=== PATIENT | female | born 1995 | race Caucasian/White ===

== ENCOUNTER 2024-02-21 14:34 | Inpatient (IN) | payer MEDICARE, SELFPAY ==
[2024-02-21 14:35] VITALS: BP 93/61; BP 96/59; PULSE 76; PULSE 81; RESP 12; RESP 14; TEMP 36.8; O2SAT 100; O2SAT 98; BMI 26.8
[2024-02-21 16:35] VITALS: BP 101/64; PULSE 98; RESP 16; O2SAT 99
--- NOTE | 2024-02-21 16:56 | EX.ED.SAOD ---
HPI History of Present Illness Chief Complaint: Substance Abuse Detail of Chief Complaint: Requesting detox from Xanax and cocaine Informant: patient Narrative Narrative: Patient presents emergency department complaint of requesting detox from heroin and cocaine. Patient states that she last used Xanax yesterday. She has been using about 10 to 12 pills of Xanax per day and she is not sure of the dosage. She has been on a terry for about 8 days. Patient denies alcohol use. She patient states that she used to abuse heroin but has been clean for about 4 months. She has not injected IV drugs in 4 months. PFSH PFS Home Medications ?Medication ?Instructions ?Recorded ?Last Taken ?Type albuterol sulfate 90 mcg/actuation 2 inh inhalation BID 02/21/24 02/20/24 History aerosol inhaler (ProAir HFA) alprazolam 0.25 mg tablet (Xanax) 0.25 mg PO DAILY 02/21/24 Unknown History Allergy/AdvReac Type Severity Reaction Status Date / Time acetaminophen (From Tylenol) Allergy Hives Verified 02/21/24 14:36 diphenhydramine (From Allergy HIVES Verified 02/21/24 14:36 Benadryl) ROS ROS ED ROS Narrative Requesting detox from benzodiazepines Review of Systems ROS Unobtainable: other Constitutional Constitutional ED: Reports lethargy; Denies chills, fever(s), sweats or weight loss Eyes Eyes: Denies blurry vision, change in vision or diplopia ENT ENT ED: Denies rhinorrhea or sore throat Cardiovascular Cardiovascular: Denies chest pain, orthopnea or racing heartbeat Respiratory/Chest Respiratory/Chest: Denies cough, dyspnea, dyspnea on exertion, orthopnea or sputum Gastrointestinal Gastrointestinal: Denies abdominal pain, diarrhea, nausea or vomiting Genitourinary Genitourinary ED: Denies dysuria, hematuria or urinary frequency Musculoskeletal Musculoskeletal: Denies arthralgias, back pain, myalgias or neck pain Integumentary Denies abscess, Abrasions or rash Neurologic Neurologic: Denies headache(s) or weakness Psychiatric Psychiatric: Denies anxiety, depression or suicidal thoughts Endocrine Endocrinology: Denies polydipsia, polyphagia or polyuria Hematologic/Lymphatic Hematologic/Lymphatic: Denies easy bleeding, easy bruising or lymphadenopathy Allergic/Immunologic Allergic/Immunologic ED: Denies mouth swelling, tongue swelling or urticaria EXAM Physical Exam Const Vital Signs: 02/21/24 14:35 02/21/24 14:35 Temperature 98.2 F Temperature Source Temporal Pulse Rate 76 81 Respiratory Rate 14 12 Blood Pressure 93/61 96/59 L Blood Pressure Mean 71 71 Pulse Ox 100 98 Oxygen Delivery Method Room Air Room Air Positive well nourished and well developed General Appearance ED: well developed and NAD HEENT Reports TM's clear and moist mucous membranes normocephalic and atraumatic; Negative for trauma or tenderness Tympanic Membrane ED: Yes TM's clear Eyes PERRL and EOMs intact bilaterally General Eye ED: Negative for pale conjunctiva or scleral icterus Neck no lymphadenopathy, supple and no JVD General: Negative for tenderness Chest Wall inspection of chest normal and palpation of chest normal Chest: Negative for tenderness Resp normal respiratory effort and clear to auscultation bilaterally Effort and Inspection: Negative for respiratory distress or pain with movement Auscultation: Negative for rhonchi, wheezes or diminished lung sounds Cardio regular rate, regular rhythm, S1 normal heart sound, S2 normal heart sound and no murmurs Peripheral Pulses: pulses 2+ throughout GI normal to inspection, nondistended, normoactive bowel sounds, soft to palpation, non-tender, non-distended and no masses Back/Spine no CVA tenderness and no thoracic nor lumbar tenderness Extremity normal to inspection General Extremety ED: Negative for edema General Extremity: Negative for edema Neuro oriented x3, CN's II-XII intact bilaterally, no sensory deficits noted and gait normal Sensorium / Orientation: awake, alert, oriented to person, oriented to place and oriented to time Motor Exam: strength 5/5 throughout and strength abnormal Psych mental status grossly normal Skin no rashes or lesions noted and no wounds MDM MDM MDM Narrative Medical decision making narrative: Patient presents requesting detox from Xanax. I did give her a dose of phenobarbital. Case discussed with hospitalist to evaluate patient for admission I did order a as well as urine tox and alcohol level. Also ordered basic labs which are pending. Discharge Plan Triage Chief Complaint: Substance Abuse ED Provider: Junito Hrarison Dx/Rx/DC Orders Clinical Impression: Benzodiazepine abuse, Admitted to substance misuse detoxification center Prescriptions: No Action alprazolam [Xanax] 0.25 mg tablet 0.25 mg PO DAILY Patient Comments: PT UNSURE OF STRENGTH. SAYS SHE TAKES BLUE ONES AND PEACH ONES. albuterol sulfate [ProAir HFA] 90 mcg/actuation HFA aerosol inhaler 2 inh inhalation BID Primary Care Provider: Care Physician,No Primary Referrals: Care Physician,No Primary [Primary Care Provider] - Print Language: Swazi Disposition Disposition: Acute Care Hospital [facility]
[2024-02-21 17:58] VITALS: BP 102/74; PULSE 82; RESP 16; TEMP 36.9; O2SAT 100
[2024-02-21] MEDS: 0.9% Normal Saline (1000mL) 1,000 ML 150 ML IV (18:30)
[2024-02-21] MEDS: Phenobarbital 32.4 MG Tablet PO (18:33)
[2024-02-21 18:36] LABS: Absolute Neutrophil Count 4.9 X10^3/uL (2.0-7.7); Basophil# 0.04 X10^3/uL; Basophil% 0.5 % (0-1); Eosinophil# 0.21 X10^3/uL; Eosinophils% 2.4 % (0-5); Hematocrit 39.8 % (37-47); Hemoglobin 13.2 g/dL (12.0-15.0); Lymphocyte % 33.4 % (19-41); Mean Corp Hgb Conc 33.2 g/dL (32-36); Mean Corpuscular Hgb 30.2 pg (27.0-32.0); Mean Corpuscular Volume 91.1 fL (81-99); Mean Platelet Vol. 10.1 fl (6.2-12.0); Monocyte# 0.59 X10^3/uL; Monocyte% 6.8 % (0-10); NRBC Flagged by Analyzer 0 % (0-5); Neutrophil # 4.91 X10^3/uL (2.7-7.7); Neutrophil % 56.6 % (47-70); Platelet Count 277 K/mm3 (150-450); RBC Distribution Width CV 13.1 % (11.6-14.6); RBC Distribution Width SD 43.8 fl (35.1-43.9); Red Blood Count 4.37 M/mm3 (4.2-5.4); White Blood Count 8.7 K/mm3 (4.4-11.0)
[2024-02-21 18:57] LABS: AST(SGOT) 32 U/L (15-37); Alanine Aminotransfer ALT/SGPT 37 U/L (13-56); Albumin, Serum 3.4 g/dL (3.2-5.0); Alkaline Phosphatase 89 U/L (45-117); Anion Gap 4 (5-15); BUN 19 mg/dL (7-18); BUN/Creat Ratio 33.1 RATIO (10-20); Calcium,Total 8.1 mg/dL (8.5-10.1); Chloride 111 mmol/L (98-107); Creatinine, Serum 0.57 mg/dL (0.55-1.02); EST Glomerular Filtration Rate 132 mL/min (>60); Est Glom Filt Rate - Afr Amer 160 mL/min (>60); Estimated Creatinine Clearance 145.94 ml/min; Globulin 3.5 g/dL (2.2-4.2); Glucose 87 mg/dL (74-106); Potassium 4.2 mmol/L (3.5-5.1); Protein, Total 6.9 g/dL (6.4-8.2); Sodium Level 140 mmol/L (136-145)
[2024-02-21 18:58] LABS: Internal QC Validated? YES +Cl - CLEAR BKGD; Pregnancy, Serum, hCG Quali. NEGATIVE Negative
[2024-02-21 19:17] LABS: Alcohol, Blood (Medical)-Serum < 3.0 mg/dL
--- NOTE | 2024-02-21 19:21 | HP.PCM.HOS_ITS ---
HPI - General General Date of Admission: 02/21/24 Date of Service: 02/21/24 Chief Complaint: Desiring services for benzodiazepine detox HPI Narrative JAYNA COATES, is a 28 F who presents to the emergency room at [facility] desiring services for detox from Xanax which she takes as an outpatient. Patient gets Xanax on the street and does not know the exact dosage, the last time she took any Xanax for his early this morning, at the time my examination, she is not complaining of any anxiety at this time. Patient told this examiner that she takes 10-12 Xanax's a day, she also sometimes uses cocaine. Patient used to use heroin but has not used any in 4 months. Patient denies any alcohol usage. Patient states she went through detox proximately 2 years ago when she was on heroin. Labs showed a normal CBC, chemistry profile was unremarkable except for a slight elevation in BUN and chloride. At the time of my dictation, toxicology was pending, patient's ethyl alcohol level was below 3. Patient will be admitted to [place] [address] for benzodiazepine detox, orders were entered using the benzodiazepine detox order set and she will be seen by addiction social service technician. [facility] Medical History (Updated 02/21/24 @ 17:59 by Lyn Griffith) Asthma Heroin use Medical History no medical history Home Medications ?Medication ?Instructions ?Recorded ?Last Taken ?Type albuterol sulfate 90 mcg/actuation 2 inh inhalation BID 02/21/24 02/20/24 History aerosol inhaler (ProAir HFA) alprazolam 0.25 mg tablet (Xanax) 0.25 mg PO DAILY 02/21/24 Unknown History Allergy/AdvReac Type Severity Reaction Status Date / Time acetaminophen (From Tylenol) Allergy Hives Verified 02/21/24 14:36 diphenhydramine (From Allergy HIVES Verified 02/21/24 14:36 Benadryl) Surgical History (Updated 02/21/24 @ 17:59 by Lyn Griffith) Hx of tonsillectomy Social History Smoking Status: Heavy Smoker (>10/day) ROS Constitutional Constitutional: Denies anorexia, change in weight, chills, fatigue, fever(s), malaise, night sweats or weakness Eyes Eyes: Denies blurry vision, change in vision, discharge from eye(s) or eye pain Cardiovascular Cardiovascular: Denies chest pain, claudication, dyspnea on exertion, edema or palpitations Respiratory/Chest Respiratory/Chest: Denies cough, hemoptysis, shortness of breath at rest or shortness of breath with exertion Gastrointestinal Gastrointestinal: Denies abdominal pain, constipation, diarrhea, hematemesis, hematochezia, melena, nausea or vomiting Genitourinary Genitourinary: Denies dysuria, hematuria, urinary frequency, urinary hesitancy, urinary incontinence or urinary urgency Musculoskeletal Musculoskeletal: Denies back pain, joint pain, joint stiffness, joint swelling, myalgias or neck pain Neurologic Neurologic: Denies abnormal gait, abnormal speech, confusion, dizziness, focal weakness, headache(s), loss of vision, numbness, other visual disturbances, paresthesias, syncope or tingling Psychiatric Psychiatric: Denies anxiety, cognitive impairment, depression, irritability, mood swings or suicidal ideation Endocrine Endocrinology: Denies change in body appearance, cold intolerance, excessive sweating, heat intolerance, polydipsia or polyuria Hematologic/Lymphatic Hematologic/Lymphatic: Denies none, anemia, easy bleeding, easy bruising or lymphadenopathy Allergic/Immunologic Allergic/Immunologic: Denies rhinitis, urticaria, eczemia or asthma Vital Signs Vital Signs Vital Signs: 02/21/24 14:35 02/21/24 14:35 02/21/24 16:35 Temperature 98.2 F Temperature Source Temporal Pulse Rate 76 81 98 Respiratory Rate 14 12 16 Blood Pressure 93/61 96/59 L 101/64 Blood Pressure Mean 71 71 76 Pulse Ox 100 98 99 Oxygen Delivery Method Room Air Room Air Room Air 02/21/24 17:58 Temperature 98.5 F Temperature Source Pulse Rate 82 Respiratory Rate 16 Blood Pressure 102/74 Blood Pressure Mean 83 Pulse Ox 100 Oxygen Delivery Method Weight Weight: 73.2 kg Body Mass Index (BMI) 26.8 Physical Exam Const alert, oriented x3, no apparent distress, average body habitus and healthy appearing General Appearance: cooperative, well kempt and well developed Orientation / Consciousness: awake, oriented to person, oriented to place and oriented to time HEENT normocephalic, head/scalp atraumatic, hearing grossly normal bilaterally and moist oral mucous membranes Eyes PERRL, EOMs intact bilaterally and conjunctivae normal Neck supple, no JVD, thyroid normal and no carotid bruits General: trachea midline Resp normal respiratory effort, no retractions, no use of accessory muscles and clear to auscultation bilaterally Auscultation: Negative for rales, rhonchi or wheezes Cardio regular rate, regular rhythm, no murmurs, no rub and no gallops GI normal to inspection, nondistended, normoactive bowel sounds, soft to palpation, non-tender and non-distended Extremity no clubbing, cyanosis or edema Skin no rashes or lesions noted General Skin Exam: no breakdown Neuro oriented x3, CN's II-XII intact bilaterally, moves all extremities, no focal motor deficits and no sensory deficits noted Sensorium / Orientation: awake, alert, oriented to person, oriented to place and oriented to time Speech: speech normal Psych affect normal Results Lab / Micro Data 02/21/24 18:25 02/21/24 18:25 Labs: Laboratory Results - last 24 hr 02/21/24 17:35: Ur Drug Screen Comment 02/21/24 18:25: WBC 8.7, RBC 4.37, Hgb 13.2, Hct 39.8, MCV 91.1, MCH 30.2, MCHC 33.2, RDW Std Deviation 43.8, RDW Coeff of Leigh 13.1, Plt Count 277, MPV 10.1, Immature Gran % (Auto) 0.300, Neut % (Auto) 56.6, Lymph % (Auto) 33.4, [place] % (Auto) 6.8, Eos % (Auto) 2.4, Baso % (Auto) 0.5, Absolute Neuts (auto) 4.9, Absolute Lymphs (auto) 2.90, Nucleated RBC % 0, Sodium 140, Potassium 4.2, C hloride 111 H, Carbon Dioxide 25.0, Anion Gap 4 L, BUN 19 H, Creatinine 0.57, Estim Creat Clear Calc 145.94, Est GFR (MDRD) Af Amer 160, Est GFR (MDRD) Non-Af 132, BUN/Creatinine Ratio 33.1 H, Glucose 87, Calcium 8.1 L, Total Bilirubin 0.20, AST 32, ALT 37, Alkaline Phosphatase 89, Total Protein 6.9, Albumin 3.4, Globulin 3.5, Albumin/Globulin Ratio 1.0, Serum , Qual NEGATIVE, Ethyl Alcohol < 3.0 Assessment & Plan Assessment/Plan (1) Benzodiazepine abuse: PLAN: Plan 1. Impending benzodiazepine withdrawal-patient will be admitted to [facility] and be seen by addiction social service technician, she will be placed on phenobarbital taper. #2 asthma by history-patient was placed on aerosol treatments as needed every 2 hours #3 cocaine abuse-complicates care, management, recovery, and prognosis Total clinical time spent by myself addressing patient's medical issues, reviewing all of her data, and collaborating with patient's care team 40 minutes Charges/Coding Visit Charges Inpatient E&M: 87851 Init Hosp L1
[2024-02-21 19:32] VITALS: BMI 27.4
[2024-02-21 19:42] VITALS: BP 95/57; PULSE 72; RESP 17; TEMP 36.6; O2SAT 99
[2024-02-21] MEDS: Phenobarbital 32.4 MG Tablet 64.8 MG PO (20:37)
[2024-02-21] MEDS: hydrOXYzine PAM 25 MG Capsule 50 MG PO (20:42)
[2024-02-21] MEDS: Dicyclomine 10 MG Capsule 20 MG PO (20:42)
[2024-02-21 23:29] LABS: Amphetamine Urine VISTA NEGATIVE (<1000 ng/mL); Barbiturate Urine VISTA POSITIVE (< 200 ng/mL); Benzodiazepine Urine VISTA POSITIVE (< 200 ng/mL); Cocaine Urine VISTA POSITIVE (< 300 ng/mL); Ecstacy Urine VISTA NEGATIVE (< 500 ng/mL); Methadone Urine VISTA NEGATIVE (< 300 ng/mL); PCP Urine VISTA NEGATIVE (< 25 ng/mL); THC Urine VISTA POSITIVE (< 50 ng/mL); Vista UDS pH Range 6
[2024-02-22] MEDS: Phenobarbital 32.4 MG Tablet 64.8 MG PO ×6 (00:55→20:57)
[2024-02-22] MEDS: traZODone 100 MG Tablet PO ×2 (00:55→23:01)
[2024-02-22] MEDS: Ondansetron 8 MG Tablet PO (00:55)
[2024-02-22] MEDS: Ibuprofen 600 MG Tablet PO ×2 (00:55→21:04)
[2024-02-22 05:10] VITALS: BP 92/54; PULSE 66; RESP 18; TEMP 36.5; O2SAT 98
[2024-02-22] MEDS: Gabapentin 300 MG Capsule PO (05:10)
[2024-02-22 07:55] VITALS: BP 90/52; PULSE 67; RESP 16; TEMP 36.6; O2SAT 95
[2024-02-22] MEDS: hydrOXYzine PAM 25 MG Capsule 50 MG PO (07:56)
[2024-02-22] MEDS: Folic Acid 1 MG Tablet PO (07:56)
[2024-02-22] MEDS: Thiamine Hydrochloride 100 MG Tablet PO (07:56)
--- NOTE | 2024-02-22 08:09 | PN.HOSP_ITS ---
Reason for Visit Reason for Visit: Benzodiazepine detox Subjective Subjective Patient is a 28-year-old white female who presented to the emergency department was given aspirin on 02/21/2024 desiring benzodiazepine detox. She takes Xanax as an outpatient and buys off the street. She does not know the exact dosage but the last time she took any Xanax was on the morning of admission. She reported she takes 10 to 12 tablets a day of unknown dose and she also sometimes uses cocaine. She had previously used heroin but has not used any in the last 4 months. She went through a detox program about 2 years ago for heroin and benzodiazepines. Vital signs on presentation showed temperature of 98.2, heart rate 76, respirate 14, blood pressure is 93/61 and sats 100% room air. CBC was unremarkable. Chemistry panel showed some mild dehydration. Toxicology screen was positive for barbiturates, benzodiazepines, cocaine, and cannabinoids. EtOH level was negative. She was admitted to the medical floor and placed on a phenobarbital taper and addiction medicine was consulted. Patient sleeping soundly. No issues known at this time. Addiction medicine attempted to see the patient today but she could not stay awake long enough to participate and will reevaluate tomorrow. Objective Data Objective Data Vital Signs: Vital Signs Temp Pulse Resp BP Pulse Ox O2 Del Method 97.7 F L 66 18 92/54 L 98 Room Air 02/22/24 05:10 02/22/24 05:10 02/22/24 05:10 02/22/24 05:10 02/22/24 05:10 02/22/24 05:10 Oxygen Delivery Method Room Air Weight: 74.9 kg Body Mass Index (BMI) 27.4 Intake & Output: Intake and Output for Last 24 Hours 02/20/24 02/21/24 02/22/24 23:59 23:59 23:59 Intake Total 335 / 335 Balance 335 / 335 Lab / Micro Data 02/21/24 18:25 02/21/24 18:25 Labs: Laboratory Results - last 24 hr 02/21/24 17:35: Urine Opiates Screen Cancelled, Urine Methadone Screen Cancelled, Ur Barbiturates Screen Cancelled, Ur Phencyclidine Scrn Cancelled, Ur Amphetamines Screen Cancelled, MDMA (Ecstasy) Screen Cancelled, U Benzodiazepines Scrn Cancelled, Urine Cocaine Screen Cancelled, U Cannabinoids Screen Cancelled, Ur Drug Screen Comment Cancelled 02/21/24 18:25: WBC 8.7, RBC 4.37, Hgb 13.2, Hct 39.8, MCV 91.1, MCH 30.2, MCHC 33.2, RDW Std Deviation 43.8, RDW Coeff of Leigh 13.1, Plt Count 277, MPV 10.1, Immature Gran % (Auto) 0.300, Neut % (Auto) 56.6, Lymph % (Auto) 33.4, Christian % (Auto) 6.8, Eos % (Auto) 2.4, Baso % (Auto) 0.5, Absolute Neuts (auto) 4.9, Absolute Lymphs (auto) 2.90, Nucleated RBC % 0, Sodium 140, Potassium 4.2, C hloride 111 H, Carbon Dioxide 25.0, Anion Gap 4 L, BUN 19 H, Creatinine 0.57, Estim Creat Clear Calc 145.94, Est GFR (MDRD) Af Amer 160, Est GFR (MDRD) Non-Af 132, BUN/Creatinine Ratio 33.1 H, Glucose 87, Calcium 8.1 L, Total Bilirubin 0.20, AST 32, ALT 37, Alkaline Phosphatase 89, Total Protein 6.9, Albumin 3.4, Globulin 3.5, Albumin/Globulin Ratio 1.0, Serum , Qual NEGATIVE, Ethyl Alcohol < 3.0 02/21/24 23:00: Urine Opiates Screen NEGATIVE, Urine Methadone Screen NEGATIVE, Ur Barbiturates Screen POSITIVE H, Ur Phencyclidine Scrn NEGATIVE, Ur Amphetamines Screen NEGATIVE, MDMA (Ecstasy) Screen NEGATIVE, U Benzodiazepines Scrn POSITIVE H, Urine Cocaine Screen POSITIVE H, U Cannabinoids Screen POSITIVE H, Ur Drug Screen Comment Physical Exam Const no apparent distress, average body habitus and well nourished; Negative for healthy appearing Constitutional Narrative: Young, white female, lying in bed sleeping soundly, appears comfortable, does not appear toxic Resp normal respiratory effort, no retractions, no use of accessory muscles and clear to auscultation bilaterally Auscultation: Negative for rales, rhonchi or wheezes Cardio regular rate, regular rhythm, S1 normal heart sound, S2 normal heart sound, no murmurs, no rub, no gallops and no clicks GI normal to inspection, nondistended, normoactive bowel sounds and soft to palpation Extremity no clubbing, cyanosis or edema Extremity Narrative: Pedal pulses are 2+ Neuro Neuro Narrative: Patient sleeping soundly Psych Psych Narrative: Unable to assess as patient was sleeping Assessment & Plan Assessment/Plan (1) Admitted to substance misuse detoxification center: (2) Benzodiazepine abuse: PLAN: Plan Acute benzodiazepine withdrawal -Continue phenobarbital taper -Continue supportive medication for withdrawal symptoms -180 consultation for discharge planning assistance Asthma -As needed aerosols available -No signs of decompensation Polysubstance abuse -Toxicology screen was positive for benzodiazepines, cocaine, and cannabinoids -Recommend cessation of all -Treatment as above Tobacco abuse -Patient admits to being a heavy smoker -Nicotine patch available -Recommend cessation DVT prophylaxis -Low risk -Recommend early and frequent ambulation CODE STATUS Full code Charges/Coding Visit Charges Inpatient E&M: 44150 Subs Hosp L2
[2024-02-22 11:30] VITALS: BP 98/49; PULSE 66; RESP 16; TEMP 36.8; O2SAT 96
--- NOTE | 2024-02-22 12:08 | ADDICTION ---
TW attempted to meet pt for RAMP assessments. Pt could not stay awake long enough to participate. TW will complete assessments and d/c plan on 02/22.
--- NOTE | 2024-02-22 14:45 | CHAPLAIN ---
Type of Pastoral Visit ___ Initial Visit ___ Follow-up Visit ___ On-call Visit ___ General Patient Visit ___ Spiritual Assessment ___ Family Conference ___ Bereavement ___ Rapid Response ___ Code Blue ___ Other (describe below) Pastoral Care Referral From ___ Patient ___ Family ___ Nurse ___ Physician ___ Call Centre Supervisor ___ Produce Specialist ___ Other (describe below) Sacrament/Intervention ___ Active listening ___ Anointing ___ Denominational ___ Bereavement ___ Communion ___ Yanet exploration ___ ___ Life review ___ Prayer ___ Reconciliation ___ Sacrament of Sick ___ Supportive presence ___ Wedding ___ Other (describe below) Pastoral Comments patient was sleeping and did not awaken to her name
[2024-02-22 16:15] VITALS: BP 95/69; PULSE 72; RESP 18; TEMP 36.4; O2SAT 98
[2024-02-22 20:55] VITALS: BP 108/58; PULSE 75; RESP 16; TEMP 36.4; O2SAT 99
[2024-02-22] MEDS: 0.9% Saline Lock 10 ML Syringe IV (20:58)
[2024-02-22] MEDS: Nicotine Polacrilex 2 MG GUM PO (21:01)
[2024-02-22] MEDS: Dicyclomine 10 MG Capsule 20 MG PO (21:04)
[2024-02-23 00:06] VITALS: BP 102/64; PULSE 67; RESP 16; TEMP 36.6; O2SAT 98
[2024-02-23] MEDS: Phenobarbital 32.4 MG Tablet 64.8 MG PO ×2 (00:06→04:17)
[2024-02-23] MEDS: Nicotine Polacrilex 2 MG GUM PO (00:09)
[2024-02-23] MEDS: Lidocaine 5% Patch 2 PATCH TOPICAL ×2 (00:14→21:26)
[2024-02-23 04:19] VITALS: BP 94/62; PULSE 62; RESP 17; TEMP 36.4; O2SAT 98
[2024-02-23 08:15] VITALS: BP 97/60; PULSE 72; RESP 16; TEMP 36.6; O2SAT 97
[2024-02-23] MEDS: Dicyclomine 10 MG Capsule 20 MG PO (08:17)
[2024-02-23] MEDS: hydrOXYzine PAM 25 MG Capsule 50 MG PO (08:17)
[2024-02-23 13:20] VITALS: BP 94/53; PULSE 58; RESP 16; TEMP 36.6; O2SAT 93
--- NOTE | 2024-02-23 14:05 | ADDICTION ---
This principal technical writer met with PT to conduct ASAM, MSE, AUDIT, DUDIT assessments and to plan for d/c. PT A+Ox4 and participated actively. All assessments completed. PT plans to f/u with inpatient treatment services on . A referral was made to [facility] in [place]. Once approved, [facility] will provide transport to treatment.
--- NOTE | 2024-02-23 14:52 | PCM.PN.HOSP ---
Reason for Visit Reason for Visit: Diagnoses Sedative, hypnotic or anxiolytic abuse, uncomplicated (02/21/24) Other specified health status (02/21/24) Subjective Subjective Patient more alert today. Objective Data Objective Data Vital Signs: Vital Signs Temp Pulse Resp BP Pulse Ox O2 Del Method 36.6 C 58 L 16 94/53 L 93 Room Air 02/23/24 13:20 02/23/24 13:20 02/23/24 13:20 02/23/24 13:20 02/23/24 13:20 02/23/24 13:20 Oxygen Delivery Method Room Air Weight: 74.9 kg Body Mass Index (BMI) 27.4 Intake & Output: Intake and Output for Last 24 Hours 02/21/24 02/22/24 02/23/24 23:59 23:59 23:59 Intake Total 335 / 335 240 / 240 Balance 335 / 335 240 / 240 Lab / Micro Data 02/21/24 18:25 02/21/24 18:25 Physical Exam Const Constitutional Narrative: Groggy took a better time to wake her but no respiratory distress or no conversational dyspnea. Resp normal respiratory effort and no retractions Assessment & Plan Assessment/Plan (1) Benzodiazepine abuse: PLAN: Plan Benzodiazepine withdrawal patient has been extremely somnolent and so I have discontinued all of the changing medications. Patient has been seen by addiction medicine and the plan is for her to go to residential program on the . Initial plan was for the patient be discharged today but with potential for relapse, will keep the patient here in the hospital so that she may go to the residential program on the . I still do have concerns about compliance and I am concerned that patient was going to different providers and going to different pharmacies to get various opiate withdrawal medications. I do have some concern if there is even the possibility of diversion. Charges/Coding Visit Charges Inpatient E&M: 60442 Subs Hosp L1
[2024-02-23 16:54] VITALS: BP 89/52; PULSE 65; RESP 16; TEMP 36.7; O2SAT 95
[2024-02-23 21:47] VITALS: BP 96/53; PULSE 66; RESP 16; TEMP 36.7; O2SAT 99
[2024-02-24 01:28] VITALS: BP 104/59; PULSE 60; RESP 16; TEMP 36.6; O2SAT 94
[2024-02-24] MEDS: Dicyclomine 10 MG Capsule 20 MG PO (01:35)
[2024-02-24] MEDS: Ibuprofen 600 MG Tablet PO (01:35)
--- NOTE | 2024-02-24 08:22 | PN.HOSP_ITS ---
Reason for Visit Reason for Visit: Diagnoses Sedative, hypnotic or anxiolytic abuse, uncomplicated (02/21/24) Other specified health status (02/21/24) Subjective Subjective No events overnight. Objective Data Objective Data Vital Signs: Vital Signs Temp Pulse Resp BP Pulse Ox O2 Del Method 36.6 C 60 16 104/59 L 94 Room Air 02/24/24 01:28 02/24/24 01:28 02/24/24 01:28 02/24/24 01:28 02/24/24 01:28 02/24/24 01:28 Oxygen Delivery Method Room Air Weight: 74.9 kg Body Mass Index (BMI) 27.4 Intake & Output: Intake and Output for Last 24 Hours 02/22/24 02/23/24 02/24/24 23:59 23:59 23:59 Intake Total 240 / 240 500 / 500 Balance 240 / 240 500 / 500 Lab / Micro Data 02/21/24 18:25 02/21/24 18:25 Physical Exam Const Constitutional Narrative: Awake. Nontoxic. Afebrile. Resp normal respiratory effort and no retractions Neuro Sensorium / Orientation: awake and alert Assessment & Plan Assessment/Plan (1) Benzodiazepine abuse: PLAN: Plan Benzodiazepine abuse * Patient had been on phenobarbital taper that was discontinued on due to profound somnolence. Patient has seen addiction medicine and the plan is to go to [facility] in [place], [place].
--- NOTE | 2024-02-24 08:24 | PCM.DC.SUM ---
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 Patient was stating that she was taking bars of Xanax illicitly. The patient started on phenobarbital taper as well as other medications to help her with her withdrawal. Most of what the medication is it is make her too somnolent patient was very somnolent during much of the day so I discontinued her medications. Patient was more alert today. I do have concerns about the patient's authenticity as patient, on review of her OARRS, goes to multiple providers in different different towns, goes to different pharmacies as well. For instance, patient was seeing Dr. Soni who recently prescribed her 28 days worth of Sublocade and that prescription was filled in [facility] had been seeing Dr. Chan and had Suboxone filled in [facility]. I do not feel the patient needs any additional treatment for benzodiazepine withdrawal. Patient does states that she normally sees her counselor and addiction medicine in [facility]. Patient to follow-up in [facility] where she is from for additional recommendations. Physical Exam Const alert Constitutional Narrative: Groggy but did wake up. Afebrile. Weight / BMI Weight Weight: 74.9 kg Body Mass Index (BMI) 27.4 ABG / Lab / Microbiology Data 02/21/24 18:25 02/21/24 18:25 D/C Instructions Discharge Diet: No restrictions Meaningful Use Info Meaningful Use Meaningful Use Diagnoses (Choose all that apply): None applicable Ischemic Stroke Statin Dosing Therapy Reference: STATIN DOSE THERAPY REFERENCE: * Patients > 75 years receive moderate or high dose statin therapy. * Patients 75 years or YOUNGER should receive HIGH intensity statin dose unless contraindicated. You will be required to document reason for non-treatment if statin daily dose does not meet guidelines. HIGH DOSE STATIN THERAPY DAILY Atorvastatin > than or = to 40 mg Rosuvastatin > than or = to 20 mg Amlodipine + Atorvastatin > than or = to 2.5/40 mg Ezetimibe + Simvastatin 10/80 mg Simvastatin 80mg Discharge Plan Admission Admit Date/Time: 02/21/24 17:37 Primary Reason for Your Visit: Benzodiazepine withdrawal Attending Provider: Alexis Amaya Primary Care Provider: Care Physician,Kassandra Primary Consulting Providers: Chris Driver; Eleanor Pagan Instructions Additional Instructions / Restrictions: Please follow-up with your addiction medicine specialist in [facility]. Discharge Orders/Prescriptions Prescriptions: Continued alprazolam [Xanax] 0.25 mg tablet 0.25 mg PO DAILY Patient Comments: PT UNSURE OF STRENGTH. SAYS SHE TAKES BLUE ONES AND PEACH ONES. albuterol sulfate [ProAir HFA] 90 mcg/actuation HFA aerosol inhaler 2 inh inhalation BID Referrals / Follow Up: Care Physician,No Primary [Primary Care Provider] - Disposition Disposition (needs filled in before D/C Order can be placed): Home, Self Care Charges/Coding Visit Charges Inpatient E&M: 90383 Disch Hosp
[2024-02-24 08:44] VITALS: BP 88/55; PULSE 64; RESP 18; TEMP 36.6; O2SAT 98
--- NOTE | 2024-02-24 09:35 | PHA.DC.MR.R ---
Pharmacy [facility] Recon[facility] Pharmacy Service has performed discharge medication reconciliation for this patient. The patient's discharge medication list was reviewed for discrepancies and discrepancies were resolved. Medications at Discharge Home Medications albuterol sulfate 90 mcg/actuation aerosol inhaler (ProAir HFA) 2 inh inhalation BID 02/21/24 alprazolam 0.25 mg tablet (Xanax) 0.25 mg PO DAILY 02/21/24
== END 2024-02-24 10:00 | disposition other institution (70) | DRG 897 ==
LOC: ED 17:22 → MS3 17:42
PROVIDERS: Admitting Provider Internal Medicine; Emergency Provider Emergency Medicine
DX: F13.139 Sedative, hypnotic or anxiolytic abuse with withdrawal, unspecified (principal); E86.0 Dehydration; F14.10 Cocaine abuse, uncomplicated; F11.11 Opioid abuse, in remission; J45.909 Unspecified asthma, uncomplicated; F12.10 Cannabis abuse, uncomplicated; F17.200 Nicotine dependence, unspecified, uncomplicated
CPT/HCPCS: 80053; 80307; 80320; 84703; 85025; 99283; J7030; A4216; G0480